=== PATIENT | male | born 1955 | race Caucasian/White ===

== ENCOUNTER 2021-09-12 10:34 | Emergency (ER) | payer MEDICARE ==
[~2021-09-12] VITALS: Ht 190.5 cm; Wt 101.0 kg
[2021-09-12 13:41] VITALS: BP 147/70
[2021-09-12] MEDS ORDERED: MOTRIN400 MG/TAB PO (13:46)
== END 2021-09-12 14:20 | disposition home or self-care (01) ==
LOC: ED 10:34
DX: M25.551 Pain in right hip (principal); M21.371 Foot drop, right foot; I10 Essential (primary) hypertension; F41.9 Anxiety disorder, unspecified; K21.9 Gastro-esophageal reflux disease without esophagitis; W01.0XXA Fall on same level from slipping, tripping and stumbling without subsequent striking against object, initial encounter; Y92.009 Unspecified place in unspecified non-institutional (private) residence as the place of occurrence of the external cause

== ENCOUNTER 2021-10-11 13:15 | Emergency (ER) | payer MEDICARE ==
[~2021-10-11] VITALS: Ht 190.5 cm; Wt 95.0 kg
[~2021-10-11 13:15] MED LIST: MOTRIN400 MG/TAB PO
[2021-10-11] MEDS ORDERED: AMLODIPINE BESY10 MG PO (14:36)
[2021-10-11] MEDS ORDERED: CIALIS5 MG PO (14:36)
[2021-10-11] MEDS ORDERED: OMEPRAZOLE20 MG PO (14:37)
[2021-10-11] MEDS ORDERED: LEXAPRO20 MG PO (14:37)
[2021-10-11] MEDS ORDERED: VITAMIN D1.25 MG PO (14:38)
[2021-10-11 15:42] VITALS: BP 152/74
== END 2021-10-11 15:42 | disposition home or self-care (01) ==
LOC: ED 13:15
DX: S43.421A Sprain of right rotator cuff capsule, initial encounter (principal); I10 Essential (primary) hypertension; K21.9 Gastro-esophageal reflux disease without esophagitis; F41.9 Anxiety disorder, unspecified; W01.0XXA Fall on same level from slipping, tripping and stumbling without subsequent striking against object, initial encounter; Y92.008 Other place in unspecified non-institutional (private) residence as the place of occurrence of the external cause

== ENCOUNTER 2021-12-13 11:40 | Emergency (ER) | payer MEDICARE ==
[~2021-12-13] VITALS: Ht 190.5 cm; Wt 103.0 kg
[2021-12-13] VITALS (7 sets, daily range): BP systolic 124–140; BP diastolic 72–97
[~2021-12-13 11:40] MED LIST changes: +AMLODIPINE BESY10 MG PO; +CIALIS5 MG PO; +LEXAPRO20 MG PO; +OMEPRAZOLE20 MG PO; +VITAMIN D1.25 MG PO
== END 2021-12-13 14:13 | disposition home or self-care (01) ==
LOC: ED 11:40
DX: S70.212A Abrasion, left hip, initial encounter (principal); S90.812A Abrasion, left foot, initial encounter; M21.371 Foot drop, right foot; I10 Essential (primary) hypertension; K21.9 Gastro-esophageal reflux disease without esophagitis; F41.9 Anxiety disorder, unspecified; G62.9 Polyneuropathy, unspecified; W01.0XXA Fall on same level from slipping, tripping and stumbling without subsequent striking against object, initial encounter; Y92.838 Other recreation area as the place of occurrence of the external cause

== ENCOUNTER 2022-01-05 11:35 | Emergency (ER) | payer MEDICARE ==
[~2022-01-05] VITALS: Ht 190.5 cm; Wt 100.0 kg
[2022-01-05 14:10] VITALS: BP 129/98
[2022-01-05] MEDS ORDERED: MOTRIN800 MG PO (14:23)
== END 2022-01-05 14:32 | disposition home or self-care (01) ==
LOC: ED 11:35
DX: S70.11XA Contusion of right thigh, initial encounter (principal); M21.371 Foot drop, right foot; G62.9 Polyneuropathy, unspecified; I10 Essential (primary) hypertension; K21.9 Gastro-esophageal reflux disease without esophagitis; F41.9 Anxiety disorder, unspecified; W01.0XXA Fall on same level from slipping, tripping and stumbling without subsequent striking against object, initial encounter; Z91.81 History of falling